=== PATIENT | female | born 1995 | race Caucasian/White ===

== ENCOUNTER 2016-02-12 00:36 | Emergency (ER) | payer OTHER ==
[2016-02-12 00:58] VITALS: RESP 20; TEMP 102.7
[2016-02-12] MEDS ORDERED: IBUPROFEN 600 MG TAB PO STA (01:14)
--- NOTE | 2016-02-12 01:25 | ED ---
URI HPI - General Chief Complaint: Upper Respiratory Infection Stated Complaint: Poss Bronchitis/Ear Pain Time Seen by Provider: 02/12/16 00:59 Source: patient, RN notes reviewed Mode of arrival: ambulatory Limitations: no limitations - History of Present Illness Initial Comments: Patient is a 20-year-old female since emergency room for evaluation of sinus congestion, cough and fever. Patient states about 2 days ago she was traveling from [place] and was on 2 flights. Patient states she began developing a productive cough and sinus congestion. Patient states she's been taking DayQuil with no relief of symptoms. Patient states today's symptoms got worse. Patient states she is coughing up green phlegm. Patient states she feels like she is very congested in her chest. Patient denies any known fevers. Patient does admit she's been having hot flashes. Patient denies taking any Tylenol or Motrin within the last few hours. Patient also stated she's been having slight throat pain. Patient also states that she is having bilateral flank pain for the past few weeks. Patient states it's been on and off. Patient does state that last week she treated herself for a yeast infection. Patient states she thought the symptoms cleared. Patient states she has slight pain and burning while urinating. Patient does admit having sexually active. Patient denies any history of STDs. Patient denies shortness of breath or chest pain. Patient denies nausea or vomiting. Patient denies abdominal pain. Patient denies headache or dizziness. Patient states she is up-to-date on her immunizations besides influenza vaccine. - Related Data Previous Rx's Medication Instructions Recorded Oseltamivir [Tamiflu] 75 mg PO Q12HR 5 Days 02/12/16 Sulfamethox-Tmp 800-160Mg [Bactrim 1 tab PO Q12HR 7 Days 02/12/16 DS 800-160 mg] Allergies Allergy/AdvReac Type Severity Reaction Status Date / Time No Known Allergies Allergy Verified 02/12/16 00:58 Review of Systems ROS Statement: Those systems with pertinent positive or pertinent negative responses have been documented in the HPI. ROS Other: All systems not noted in ROS Statement are negative. Past Medical History Past Medical History: No Reported History History of Any Multi-Drug Resistant Organisms: None Reported Additional Past Surgical History / Comment(s): Umbilical surgery Smoking Status: Never smoker Past Alcohol Use History: Rare Past Drug Use History: Marijuana General Exam - General Exam Comments Initial Comments: Sitting in exam room, no acute distress. Limitations: no limitations General appearance: alert, in no apparent distress Head exam: Present: atraumatic, normocephalic, normal inspection Eye exam: Present: normal appearance ENT exam: Present: normal exam, normal oropharynx, mucous membranes moist, TM's normal bilaterally, normal external ear exam Neck exam: Present: normal inspection Respiratory exam: Present: normal lung sounds bilaterally. Absent: respiratory distress Cardiovascular Exam: Present: normal rhythm, tachycardia, normal heart sounds Extremities exam: Present: normal inspection Back exam: Present: normal inspection Neurological exam: Present: alert, oriented X3, CN II-XII intact, normal gait Psychiatric exam: Present: normal affect, normal mood Skin exam: Present: warm, dry, intact, normal color. Absent: rash Course Vital Signs 02/12/16 02/12/16 00:54 02:33 Temperature 102.7 F H Pulse Rate 112 H 98 Respiratory 20 20 Rate Blood Pressure 156/73 131/78 O2 Sat by Pulse 96 97 Oximetry Medical Decision Making - Medical Decision Making Patient is a 20-year-old female since emergency room for evaluation of cough, congestion, fever and dysuria. Urinalysis suspicious for urinary tract infection. Patient positive for influenza a. Will place patient on Tamiflu and antibiotics for urinary tract infection. Patient states she understands everything that was discussed with her. Return parameters discussed. Case discussed with Dr. Darden. - Lab Data Lab Results 02/12/16 02/12/16 02/12/16 Range/Units 01:28 01:37 01:37 Urine Color Light Yellow Urine Appearance Cloudy H (Clear) Urine pH 7.0 (5.0-8.0) Ur Specific [place] 1.006 (1.001-1.035) Urine Protein Negative (Negative) Urine Glucose (UA) Negative (Negative) Urine Ketones Negative (Negative) Urine Blood Small H (Negative) Urine Nitrate Negative (Negative) Urine Bilirubin Negative (Negative) Urine Urobilinogen <2.0 (<2.0) mg/dL Ur Leukocyte Esterase Large H (Negative) Urine RBC 17 H (0-5) /hpf Urine WBC >182 H (0-5) /hpf Urine WBC Clumps Rare H (None) /hpf Ur Squamous Epith Cells 4 (0-4) /hpf Ur Transition Epith Cell <1 (0-1) /hpf Urine Bacteria Rare H (None) /hpf Urine HCG, Qual Not Detected (Not Detectd) Influenza Type A RNA Detected H (Not Detectd) Influenza Type B (PCR) Not Detected (Not Detectd) - Radiology Data Radiology results: report reviewed, image reviewed Disposition Clinical Impression: Influenza A, Urinary tract infection Disposition: HOME SELF-CARE Condition: Good Instructions: Urinary Tract Infection in Women (ED), Influenza (ED) Additional Instructions: Take medications as directed. Alternate Tylenol and Motrin as needed for fever. Please follow up with primary care provider in 24-48 hours for reevaluation. Drink plenty of fluids. If any new symptom arises or symptoms worsen, return to ER as soon as possible. Prescriptions: Oseltamivir [Tamiflu] 75 mg PO Q12HR 5 Days Sulfamethox-Tmp 800-160Mg [Bactrim DS 800-160 mg] 1 tab PO Q12HR 7 Days Referrals: Jv Duarte MD [Primary Care Provider] - 1-2 days Time of Disposition: 02:14
[2016-02-12 02:04] LABS: Appearance,Urine Cloudy (Clear); Bacteria,Urine Rare /hpf; Bilirubin,Urine Negative (Negative); Glucose,Urine (UA) Negative (Negative); Ketones,Urine Negative (Negative); Leukocyte Esterase,Urine Large (Negative); Nitrite,Urine Negative (Negative); Particle Count 4112; Protein,Urine Negative (Negative); RBC,Urine 17 /hpf (0-5); Specific Gravity,Urine 1.006 (1.001-1.035); Squamous Epithelial Cell,Urine 4 /hpf (0-4); Transitional Epi Cells,Urine <1 /hpf (0-1); UA Billing (MACRO vs. MICRO) MICRO; Urobilinogen,Urine <2.0 mg/dL (<2.0); WBC,Urine >182 /hpf (0-5)
[2016-02-12] MEDS ORDERED: OSELTAMIVIR 75 MG CAP PO STA (02:10)
[2016-02-12] MEDS ORDERED: SULFAMETHOX-TMP 800-160MG 1 EACH TAB PO STA (02:14)
--- NOTE | 2016-02-12 02:21 | XR ---
EXAMINATION TYPE: XR chest 2V DATE OF EXAM: 02/12/2016 2:11 AM COMPARISON: 11/01/2012 HISTORY: History of cough and congestion TECHNIQUE: Frontal and lateral views of the chest are obtained. FINDINGS: Mild peribronchial cuffing is noted with possible chronic bronchitis changes. There is no focal air space opacity, pleural effusion, or pneumothorax seen. The cardiac silhouette size is within normal limits. The osseous structures are intact. IMPRESSION: No focal lung consolidation or pneumonia. Possible bronchiolitis.
[2016-02-12 02:33] VITALS: BP 131/78; PULSE 98
== END 2016-02-12 02:34 | disposition home or self-care (01) ==
LOC: EC 00:36
DX: J10.1 Influenza due to other identified influenza virus with other respiratory manifestations (principal); N39.0 Urinary tract infection, site not specified
CPT/HCPCS: 71020; 81001; 81025; 87502; 99283